=== PATIENT | female | born 1960 | race Caucasian/White ===

== ENCOUNTER 2020-08-03 07:15 | Inpatient (IN) | payer SELFPAY ==
[~2020-08-03] VITALS: Ht 170.2 cm; Wt 67.3 kg
--- NOTE | 2020-08-03 08:03 | NUR ---
patient came in to the er c/o abd pain x 1 month on and off, worst x 3 days, +N/V,+diarrhea,10/10 PS, on room air, breathing evenly and unlabored, connected to the monitor and pulse ox, kept comfortable, will continue to monitor accordingly.
--- NOTE | 2020-08-03 08:13 | NUR ---
wheeled patient to ct
[2020-08-03 08:19] LABS: BASOPHILS # (AUTO) 0.1 /CMM (0.0-0.2); EOSINOPHILS % (AUTO) 0.6 % (0.0-6.0); HEMATOCRIT 42 % (33-45); HEMOGLOBIN 14.3 g/dL (11.5-14.8); LYMPHOCYTES # (AUTO) 1.4 /CMM (0.8-4.8); LYMPHOCYTES % (AUTO) 12.1 % (20.0-44.0); MEAN CORPUSCULAR HGB CONC 34 g/dl (31.0-36.0); MEAN CORPUSCULAR VOLUME 90 fL (82-100); MONOCYTES # (AUTO) 0.6 /CMM (0.1-1.30); MONOCYTES % (AUTO) 5.1 % (2.0-12.0); NEUTROPHILS # (AUTO) 9.4 /CMM (1.8-8.9); NEUTROPHILS % (AUTO) 81.2 % (43.0-81.0); PLATELET COUNT (AUTO) 247 /CMM (150-450); RED BLOOD CELL COUNT(AUTO) 4.71 MIL/uL (4.0-5.2); WHITE BLOOD COUNT (AUTO) 11.5 K/uL (4.3-11.0)
--- NOTE | 2020-08-03 08:19 | NUR ---
patient came back from ct
--- NOTE | 2020-08-03 08:44 | NUR ---
DR Lizzy ARTEAGA
[2020-08-03 08:48] LABS: ALBUMIN 3.5 g/dL (3.4-5.0); BILIRUBIN,DIRECT 0.3 mg/dL (0.0-0.2); BILIRUBIN,TOTAL 0.9 mg/dL (0.2-1.0); CALCIUM, SERUM 9.5 mg/dL (8.5-10.1); CREATININE 1.3 mg/dL (0.6-1.3); TOTAL PROTEIN, SERUM 8.1 g/dL (6.4-8.2)
[2020-08-03 08:57] LABS: BILIRUBIN,URINE LARGE (NEGATIVE); COLOR,URINE YELLOW (YELLOW); LEUKOCYTE ESTERASE ,URINE Trace (NEGATIVE); NITRITE, URINE Negative (NEGATIVE); PH,URINE 5.5 (5.0-8.0); PROTEIN,URINE 100 mg/dl (NEGATIVE); UGLUCOSE 100 MG/DL mg/dL (NEGATIVE)
[2020-08-03] MEDS ORDERED: MULT-447 PO (08:59)
[2020-08-03] MEDS ORDERED: CALC500T13 PO (08:59)
[2020-08-03] MEDS ORDERED: CHOL100062 PO (08:59)
[2020-08-03] MEDS ORDERED: LETR2.5T8 PO (08:59)
[2020-08-03] MEDS ORDERED: Z GUARD REMEDY 2 OZ OINT TP PRN (09:00)
[2020-08-03] MEDS ORDERED: ACETAMINOPHEN 325 MG TABLET PO PRN (09:00)
[2020-08-03] MEDS ORDERED: ONDANSETRON HCL/PF 4 MG/2 ML VIAL IVP PRN (09:00)
[2020-08-03] MEDS ORDERED: METRONIDAZOLE 500MG/ NS 100ML 500 MG in PREMIX 1 EA IV SCH (09:00)
[2020-08-03] MEDS ORDERED: PIPERACILLIN /TAZOBACTAM 3.375 G in IV D5W 50 ML IV ONE (09:00)
[2020-08-03 09:05] LABS: BACTERIA,URINE Moderate /HPF (None Seen)
--- NOTE | 2020-08-03 09:37 | NUR ---
Gurvinder coleman in [facility] - 08/03/20 at 1014 by [facility] CALLED AND ASKED TO USAMA MEEHAN GIVE US A CALL BACK
--- NOTE | 2020-08-03 10:18 | NUR ---
REPORT GIVEN TO LIAN ALMAGUER FOR [facility]
[2020-08-03 10:45] VITALS: BP 148/78
[2020-08-03] MEDS: IV NS 0.9% 1,000 ML IV PRN (10:58)
[2020-08-03] MEDS: CIPROFLOXACIN IV RTU 400 MG in PREMIX 1 EA IV SCH ×2 (11:07→22:09)
--- NOTE | 2020-08-03 11:52 | NUR ---
RN ADMITTING/OPENING NOTES RECEIVED REPORT FROM ROSINA BRIDGES. PT ADMITTED TO UNIT AT 10:40 AM VIA GURNEY, ACCOMPANIED BY CYRUS ALMAGUER AND ROSINA GRIFFIN. PT IS AWAKE, A/O X 4, AND ABLE TO MAKE NEEDS KNOWN. PT HAS NO C/O PAIN AT THIS TIME. PT IS ON ROOM AIR WITH NO SOB, LABORED BREATHING OR S/SX RESPIRATORY DISTRESS NOTED. PT HAS AN NGT ON THE LEFT NARE, PATENT AND INTACT, CONNECTED TO LOW INTERMITTENT SUCTIOND WITH CLEAR TO LIGHT BROWNISH MINIMAL SECRETIONS NOTED, TOLERATED WELL BY PT. PT HAS AN G#18 IV ACCESS ON LEFT FOREARM, PATENT, INTACT AND FLUSHING WELL, RUNNING NS @ 75ML/HR. NO S/S OF INFILTRATIONS AT SITE NOTED. PT ORIENTED TO UNIT AND ROOM. EDUCATED ON CONDITION AND NPO STATUS. SAFETY MEASURES INITIATED: BED IN LOWEST, LOCKED POSITION WITH UPPER SIDE RAILS UP X2. CALL LIGHT EDUCATION PROVIDED AND PLACED WITHIN REACH WITH SUCCESSFUL RETURN DEMONSTRATION. WILL CONTINUE TO MONITOR.
[2020-08-03 12:00] VITALS: BP 148/78
[2020-08-03] MEDS: METRONIDAZOLE 500MG/ NS 100ML 500 MG in PREMIX 1 EA IV SCH ×2 (13:31→21:08)
--- NOTE | 2020-08-03 14:48 | NUR ---
MS RN NOTE PT ACCIDENTALLY PULLED OUT NGT WHEN VOMITING/HAVING NAUSEA. INSERTED A NEW NGT, PROCEDURE TOLERATED WELL BY PT. ASPIRATED GASTRIC CONTENTS AND CALLED X-RAY TO VERIFY TUBE PLACEMENT. X-RAY SHOWED PROPER PLACEMENT OF NGT IN THE STOMACH. RESUMED LOW, INTERMITTENT SUCTIONING PER MD ORDERS. PT TOLERATING NGT AND SUCTIONING WELL. WILL CONTINUE TO MONITOR.
[2020-08-03 15:28] LABS: BILIRUBIN,URINE NEGATIVE (NEGATIVE); COLOR,URINE YELLOW (YELLOW); LEUKOCYTE ESTERASE ,URINE NEGATIVE (NEGATIVE); NITRITE, URINE NEGATIVE (NEGATIVE); PH,URINE 5.5 (5.0-8.0); PROTEIN,URINE NEGATIVE (NEGATIVE); UGLUCOSE NEGATIVE (NEGATIVE); UROBILINOGEN,URINE 0.2 EU/dL (0.2)
[2020-08-03 15:32] LABS: CREATININE, URINE 55.1 MG/DL (30.0-125.0); URINE TOTAL PROTEIN 25.4 mg/dL (0-11.9)
[2020-08-03 15:46] LABS: RBC,URINE 0-2 /HPF (0-2)
[2020-08-03 15:47] LABS: BACTERIA,URINE Few /HPF (None Seen); SQUAMOUS EPITHELIAL CELL,UR Few /HPF (None Seen); WBC,URINE 0-2 /HPF (0-3)
[2020-08-03 15:51] LABS: EOSINOPHIL,URINE None Seen
[2020-08-03 16:00] VITALS: BP 119/74
--- NOTE | 2020-08-03 18:49 | NUR ---
MS RN CLOSING NOTES PT ASLEEP IN BED AT THIS TIME, EASILY AWAKENS. A/O X 4. ABLE TO MAKE NEEDS KNOWN. ON ROOM AIR, TOLERATING WELL WITH NO SOB NOTED. NPO STATUS MAINTAINED. NGT ON LEFT NARE IN PLACE CONNECTED TO LOW INTERMITTENT SUCTION WITH CLEAR TO LIGHT BROWNISH MINIMAL SECRETIONS NOTED. IV ACCESS ON LFA G#18 INTACT WITH IVF OF NS @ 75ML/HR INFUSING WELL, NO S/S OF INFILTRATIONS AT SITE NOTED. ASPIRATION AND SAFETY MEASURES KEPT IN PLACE: HOB KEPT ELEVATED. BED IN LOWEST LOCKED POSITION WITH UPPER SIDE RAILS UP X2. CALL LIGHT WITHIN EASY REACH OF PT. WILL ENDORSE TO CATHODE RAY TUBE [employer] PROCESSOR NURSE FOR [facility].
--- NOTE | 2020-08-03 19:45 | NUR ---
MSRN FULLY AWAKE VERBALIZES ABDOMINAL DISCOMFORT. DENIES NAUSEA. NGT TO LIS VERY SCANTY AMOUNT OF GASTRIC DRAINAGE NOTED. CHECKED FOR PATENCY, TUBE IN PLACE. TO CONTINUE.
[2020-08-03 20:00] VITALS: BP 113/86
[2020-08-03] MEDS: MORPHINE SULFATE INJ 2 MG/ML DISP.SYRIN IV PRN (20:07)
--- NOTE | 2020-08-03 20:15 | NUR ---
MSRN MORPHINE 1MG IVP ADMINISTERED FOR ABDOMINAL PAIN SCALE OF 8/10.BEDREST FORNOW. CALL LIGHT WITHIN REACH
--- NOTE | 2020-08-03 20:39 | NUR ---
MSRN FELT NEED TO DEFECATE, ASSITED TO RESTROOM. WANTED TO SIT IN THE TOILET FOR AWHILE. CLOSELY WATCHED.
--- NOTE | 2020-08-03 20:41 | NUR ---
MSRN RELIEF OF ABDOMINAL PAIN FROM MORPHINE. IVF CONTINUED. STATED VOIDED ONLY. NO BM. KEPT NPO.
[2020-08-04] MEDS: MORPHINE SULFATE INJ 2 MG/ML DISP.SYRIN IV PRN ×4 (01:22→16:52)
--- NOTE | 2020-08-04 01:33 | NUR ---
MSRN AWAKENED WITH ABD PAIN, MORPHINE 1MG IVP ADMINISTERED ORDERED. BEDREST EMPHASIZED. PRESENT IVF CONTINUED.
[2020-08-04] MEDS: METRONIDAZOLE 500MG/ NS 100ML 500 MG in PREMIX 1 EA IV SCH ×2 (05:09→12:42)
[2020-08-04] MEDS: IV NS 0.9% 1,000 ML IV PRN (06:17)
--- NOTE | 2020-08-04 06:30 | NUR ---
MSRN ABDOMINAL PAIN RATE OF 8/10, MORPHINE 1MG IVP ADMINISTERED. ASSISTED TO RESTROOM AFTER FEW MINUTES, PASS GAS WHILE WALKING. TOTAL OF 550 CC FROM NGT DARK REDDISH TO DARK BROWN OUTPUT. NO NAUSEA OR VOMITTING, ABDOMEN REMAINS DISTENDED AND SOFT OF THIS TIME.
[2020-08-04 06:56] LABS: BASOPHILS % (AUTO) 0.2 % (0.0-2.0); EOSINOPHILS % (AUTO) 1.4 % (0.0-6.0); HEMATOCRIT 40 % (33-45); HEMOGLOBIN 13.5 g/dL (11.5-14.8); LYMPHOCYTES # (AUTO) 1.4 /CMM (0.8-4.8); LYMPHOCYTES % (AUTO) 25.3 % (20.0-44.0); MEAN CORPUSCULAR HGB CONC 34 g/dl (31.0-36.0); MEAN CORPUSCULAR VOLUME 89 fL (82-100); MONOCYTES # (AUTO) 0.7 /CMM (0.1-1.30); NEUTROPHILS # (AUTO) 3.4 /CMM (1.8-8.9); NEUTROPHILS % (AUTO) 61.1 % (43.0-81.0); PLATELET COUNT (AUTO) 240 /CMM (150-450); RED BLOOD CELL COUNT(AUTO) 4.49 MIL/uL (4.0-5.2); WHITE BLOOD COUNT (AUTO) 5.5 K/uL (4.3-11.0)
[2020-08-04 07:14] LABS: ALBUMIN 2.6 g/dL (3.4-5.0); BILIRUBIN,TOTAL 0.6 mg/dL (0.2-1.0); CALCIUM, SERUM 8.5 mg/dL (8.5-10.1); CREATININE 0.6 mg/dL (0.6-1.3); MAGNESIUM 2.3 mg/dL (1.8-2.4); PHOSPHORUS 3.4 mg/dL (2.5-4.9); POTASSIUM 3.5 mmol/L (3.5-5.1); TOTAL PROTEIN, SERUM 6.4 g/dL (6.4-8.2)
[2020-08-04 07:24] LABS: THYROID STIMULATING HORMONE 4.269 uIU/mL (0.358-3.74)
[2020-08-04 08:00] VITALS: BP 107/75
[2020-08-04] MEDS: CIPROFLOXACIN IV RTU 400 MG in PREMIX 1 EA IV SCH (09:22)
[2020-08-04 16:00] VITALS: BP 132/100
--- NOTE | 2020-08-04 17:15 | NUR ---
RN MS NOTES PT IN BED, AWAKE, ALERT AND ORIENTED, PAIN MEDS GIVEN FOR PAIN MANAGEMENT, RESPIRATIONS NORMAL, NO COMPLAINT OF NAUSEA OR VOMITING, NGT IN PLACE DRAINING DARK GASTRIC CONTENTS, VIA LOW INTERMITTENT SUCTION WITH 700 ML OUTPUT AT THIS TIME, PT STATES THAT SHE WANTS TO LEAVE AMA, PT INFORMED OF THE RISKS AND BENEFITS, STILL WOULD LIKE TO LEAVE, SAID SHE HAS SCHEDULED APPOINTMENTS WITH HER DOCTORS, DR. SMITH INFORMED, PT SIGNED AMA FORM, SIGNED BELONGINGS FORM, WILL BE PICKED UP BY HER .
--- NOTE | 2020-08-04 17:58 | NUR ---
RN MS NOTES INSTRUCTED PT REGARDING RESUMING DIET AND TO SEE HER DOCTOR ANEL AND TO RETURN TO E.R. IN CASE OF EMERGENCY, PER VERBALIZED UNDERSTANDING, NGT REMOVED, TOLERATED WELL, PT ASSISTED TO HOSPITAL LOBBY VIA WHEELCHAIR, TO BE PICKED UP BY HER .
[2020-08-05 08:06] LABS: PTH, INTACT 49 pg/mL (15-65)
[2020-08-05 11:07] LABS: *SPE A/G RATIO 0.8 (0.7-1.7); *SPE ALBUMIN 2.5 g/dL (2.9-4.4); *SPE ALPHA-1-GLOBULIN 0.3 g/dL (0.0-0.4); *SPE ALPHA-2-GLOBULIN 1.1 g/dL (0.4-1.0); *SPE M-SPIKE Not Observed g/dL (Not Observed); *SPEGAMMA GLOBULIN 0.6 g/dL (0.4-1.8)
== END 2020-08-04 17:57 | disposition left against medical advice (07) | DRG 388 ==
LOC: ER 07:27 → TRANSITION 09:31 → MED 10:07
PROVIDERS: ADMIT Internal Medicine; ATTEND Internal Medicine
DX: K56.609 Unspecified intestinal obstruction, unspecified as to partial versus complete obstruction (principal); K65.9 Peritonitis, unspecified; N17.0 Acute kidney failure with tubular necrosis; E87.1 Hypo-osmolality and hyponatremia; Z85.3 Personal history of malignant neoplasm of breast; Z79.899 Other long term (current) drug therapy; K52.9 Noninfective gastroenteritis and colitis, unspecified; N20.0 Calculus of kidney; E86.1 Hypovolemia; Z79.811 Long term (current) use of aromatase inhibitors
CPT/HCPCS: 36415; 71045-TC; 80048-TC; 80053-TC; 80061-TC; 80076-TC; 81001; 82550-TC; 82570-TC; 83690-TC; 83735-TC; 83970; 84100-TC; 84155; 84155-TC; 84165; 84300-TC; 84443-TC; 85025-TC; 87081-TC; 87086-TC; 87186-TC; A4216; G0378; J0744; J2270; J2543; J7030; J7060